=== PATIENT | male | born 1955 | race African-American/Black ===

== ENCOUNTER 2024-06-09 23:44 | Inpatient (IN) | payer BC, OTHER ==
[2024-06-10 01:02] LABS: BASO % 0.5 % (0-2.0); EOS % 2.4 % (0-4.5); HEMOGLOBIN 12.2 GM/dL (11.7-16.9); LYMPH % 28.3 % (8-40); MCH 26.3 pg (25.7-33.7); MEAN PLT VOLUME 8.9 fl (7.5-11.1); MONO % 13.5 % (3.8-10.2); NEUT % 55.3 % (42.8-82.8); PLATELET COUNT 245 10^3/uL (134-434); RBC 4.64 M/mm3 (4.00-5.60); RDW 12.8 % (11.9-15.9); VENOUS BASE EXCESS 2.9 mmol/L (-2-2); VENOUS O2 SATURATION 19.8 % (70-80); VENOUS PCO2 50.2 mmHg (38-52); VENOUS PH 7.378 (7.310-7.410); WHITE BLOOD COUNT 7.1 K/mm3 (4.0-10.0)
[2024-06-10] MEDS ORDERED: ACETAMINOPHEN INJECTION 100 ML ONE (01:16)
[2024-06-10] MEDS: SODIUM CHLORIDE 0.9% 500 ML INFUS.BAG IV ONE (01:20)
[2024-06-10 01:21] LABS: CHLORIDE 96 mmol/L (98-107); POTASSIUM 4.9 mmol/L (3.5-5.1); SODIUM 135 mmol/L (136-145)
[2024-06-10] MEDS: ACETAMINOPHEN 1000 MG/100 ML BAG IVPB ONE (01:21)
[2024-06-10 01:24] LABS: CALCIUM 9.7 mg/dL (8.5-10.1)
[2024-06-10 01:25] LABS: ALBUMIN 3.5 g/dl (3.4-5.0); ANION GAP 9 mmol/L (4-13); BLOOD UREA NITROGEN 33.3 mg/dL (7-18); CO2 29 mmol/L (21-32)
[2024-06-10 01:28] LABS: CREATININE 2.2 mg/dL (0.55-1.3); SGOT/AST 30 U/L (15-37); SGPT/ALT 20 U/L (13-61)
[2024-06-10 01:29] LABS: BILIRUBIN,TOTAL 1.1 mg/dL (0.2-1); TOT PROT 8.2 g/dl (6.4-8.2)
[2024-06-10 01:31] LABS: ALK PHOS 70 U/L (45-117)
[2024-06-10] MEDS ORDERED: INSULIN ASPART SLIDING SCALE (NOVOLOG) 1 VIAL SQ ONE (01:45)
[2024-06-10 01:46] LABS: GLUCOSE,RANDOM 415 mg/dL (74-106)
[2024-06-10] MEDS ORDERED: AMOXICILLIN 500 MG CAPSULE (FP) ONE (01:46)
[2024-06-10] MEDS: OFLOXACIN 0.3% OTIC SOLUTION 5 ML BOTTLE AD SCH (01:53)
[2024-06-10] MEDS: INSULIN (NOVOLOG) ASPART 100 UNITS/ML 10ML VIAL SQ ONE (01:53)
[2024-06-10] MEDS: AMOXICILLIN 500 MG CAPSULE (FP) PO ONE ×2 (01:53→02:06)
[2024-06-10 02:12] LABS: EPI CELLS 2 /uL (0-25.1); HYALINE CASTS 0 /uL (0-3.1); URINE APPEARANCE CLEAR; URINE BACTERIA 1 /uL (0-1359); URINE BILIRUBIN NEGATIVE (NEGATIVE); URINE COLOR YELLOW; URINE GLUCOSE (UA) 3+ (NEGATIVE); URINE KETONE NEGATIVE (NEGATIVE); URINE LEUK ESTERASE NEGATIVE (NEGATIVE); URINE NITRITE NEGATIVE (NEGATIVE); URINE PROTEIN 1+ (NEGATIVE); URINE RBC 11 /uL (0-23.9); URINE UROBILINOGEN 0.2 mg/dL (0.2-1.0); URINE WBC 2 /uL (0-25.8)
[2024-06-10] MEDS: INSULIN ASPART SLIDING SCALE (NOVOLOG) 1 VIAL SQ SCH (06:40)
[2024-06-10] MEDS: SODIUM CHLORIDE 1,000 ML IV SCH (06:42)
[2024-06-10] MEDS: HEPARIN NA (PORCINE) 5,000 UNITS/ML 1ML VIAL SQ SCH (06:43)
[2024-06-10] MEDS ORDERED: AMOX TR/POT CLAV 500MG/125MG TABLETS (FP) PO SCH (08:00)
[2024-06-10 08:15] LABS: BASO % 0.5 % (0-2.0); EOS % 2.8 % (0-4.5); HEMATOCRIT 36.2 % (35.4-49); HEMOGLOBIN 11.5 GM/dL (11.7-16.9); LYMPH % 36.5 % (8-40); MCH 26.5 pg (25.7-33.7); MCHC 31.8 g/dl (32.0-35.9); MEAN CELL VOLUME 83.2 fl (80-96); MEAN PLT VOLUME 9.1 fl (7.5-11.1); MONO % 14.6 % (3.8-10.2); NEUT % 45.6 % (42.8-82.8); PLATELET COUNT 217 10^3/uL (134-434); RBC 4.35 M/mm3 (4.00-5.60); RDW 12.4 % (11.9-15.9); WHITE BLOOD COUNT 6.9 K/mm3 (4.0-10.0)
[2024-06-10] MEDS: AMOX TR/POT CLAV 875MG/125MG TABLETS (FP) PO SCH (08:31)
[2024-06-10 08:37] LABS: POTASSIUM 3.8 mmol/L (3.5-5.1)
[2024-06-10 08:50] LABS: ALBUMIN 2.9 g/dl (3.4-5.0)
[2024-06-10 08:52] LABS: BLOOD UREA NITROGEN 29.9 mg/dL (7-18); MAGNESIUM 2.1 mg/dL (1.8-2.4)
[2024-06-10 08:54] LABS: CREATININE 1.7 mg/dL (0.55-1.3); PHOSPHOROUS 3.8 mg/dL (2.5-4.9)
[2024-06-10 08:56] LABS: BILIRUBIN,TOTAL 1.1 mg/dL (0.2-1); TOT PROT 6.9 g/dl (6.4-8.2)
[2024-06-10] MEDS: LOSARTAN 50MG/HCTZ 12.5MG 1 TAB PO SCH (09:40)
[2024-06-10] MEDS: ASPIRIN COATED 81 MG TABLET.EC PO SCH (09:40)
[2024-06-10] MEDS: INSULIN (LEVEMIR) 100 UNITS/ML UNITS SQ SCH (09:42)
[2024-06-10] MEDS ORDERED: ENOXAPARIN NA (PORCINE) 40 MG/0.4 ML DISP.SYRIN SQ SCH (10:00)
[2024-06-10] MEDS: TAMSULOSIN HCL 0.4 MG CAP PO ONE (11:56)
[2024-06-10 12:31] VITALS: BMI 27.3
[2024-06-10] MEDS: CARBAMIDE PEROXIDE 6.5% OTIC 15 ML BOTTLE AU SCH (12:37)
[2024-06-10] MEDS: SODIUM CHLORIDE 0.45% 1,000 ML IV SCH (12:45)
[2024-06-10 14:32] LABS: HIV INTERPRETATION NEGATIVE (NEGATIVE)
[2024-06-10] MEDS: PIPERACILLIN/TAZOB 2.25 GM 2.25 GM/50 ML BAG IVPB SCH (15:15)
[2024-06-10] MEDS ORDERED: PIPERACILLIN/TAZOB 2.25 GM 2.25 GM/50 ML BAG IVPB SCH (18:00)
[2024-06-10] MEDS: ROSUVASTATIN CA 10 MG TABLET PO SCH (21:58)
[2024-06-10] MEDS: PIPERACILLIN/TAZOB 4.5 GM 4.5 GM/100 ML BAG IVPB SCH (21:58)
[2024-06-11 07:28] LABS: BASO % 0.9 % (0-2.0); EOS % 2.3 % (0-4.5); HEMOGLOBIN 11.3 GM/dL (11.7-16.9); LYMPH % 33.6 % (8-40); MCH 26.2 pg (25.7-33.7); MCHC 31.5 g/dl (32.0-35.9); MEAN PLT VOLUME 8.9 fl (7.5-11.1); MONO % 11.9 % (3.8-10.2); NEUT % 51.3 % (42.8-82.8); PLATELET COUNT 237 10^3/uL (134-434); RBC 4.34 M/mm3 (4.00-5.60); RDW 12.6 % (11.9-15.9); WHITE BLOOD COUNT 7.3 K/mm3 (4.0-10.0)
[2024-06-11 07:46] LABS: POTASSIUM 4.4 mmol/L (3.5-5.1)
[2024-06-11 07:50] LABS: ALBUMIN 2.8 g/dl (3.4-5.0); BLOOD UREA NITROGEN 22.9 mg/dL (7-18); MAGNESIUM 1.9 mg/dL (1.8-2.4)
[2024-06-11 07:53] LABS: CREATININE 1.7 mg/dL (0.55-1.3)
[2024-06-11] MEDS: LOSARTAN POTASSIUM 50 MG TABLET PO SCH (09:35)
[2024-06-11] MEDS: TAMSULOSIN HCL 0.4 MG CAP PO SCH (09:35)
[2024-06-11] MEDS ORDERED: PIPERACILLIN/TAZOB 2.25 GM 2.25 GM/50 ML BAG IVPB SCH (18:00)
[2024-06-11] MEDS: INSULIN (LEVEMIR) 100 UNITS/ML UNITS SQ SCH (22:57)
[2024-06-12] MEDS: ACETAMINOPHEN 1000 MG/100 ML BAG IVPB ONE (00:35)
[2024-06-12 08:19] LABS: POTASSIUM 4.2 mmol/L (3.5-5.1)
[2024-06-12 08:21] LABS: CALCIUM 8.4 mg/dL (8.5-10.1)
[2024-06-12 08:22] LABS: ALBUMIN 2.6 g/dl (3.4-5.0); BLOOD UREA NITROGEN 24.4 mg/dL (7-18); MAGNESIUM 1.8 mg/dL (1.8-2.4)
[2024-06-12 08:25] LABS: CREATININE 1.7 mg/dL (0.55-1.3)
[2024-06-12 08:27] LABS: BILIRUBIN,TOTAL 0.7 mg/dL (0.2-1); TOT PROT 6.4 g/dl (6.4-8.2)
[2024-06-12 08:28] LABS: BASO % 0.6 % (0-2.0); EOS % 4.3 % (0-4.5); HEMATOCRIT 34.1 % (35.4-49); HEMOGLOBIN 11.2 GM/dL (11.7-16.9); MCH 26.8 pg (25.7-33.7); MEAN CELL VOLUME 81.3 fl (80-96); MONO % 10.4 % (3.8-10.2); NEUT % 49.7 % (42.8-82.8); PLATELET COUNT 248 10^3/uL (134-434); RBC 4.19 M/mm3 (4.00-5.60); RDW 12.6 % (11.9-15.9); WHITE BLOOD COUNT 6.5 K/mm3 (4.0-10.0)
[2024-06-12 08:29] LABS: HEMATOCRIT 34.6 % (35.4-49); HEMOGLOBIN 11.3 GM/dL (11.7-16.9); MCH 26.8 pg (25.7-33.7); MCHC 32.7 g/dl (32.0-35.9); MEAN CELL VOLUME 81.9 fl (80-96); PLATELET COUNT 246 10^3/uL (134-434); RBC 4.23 M/mm3 (4.00-5.60); RDW 12.7 % (11.9-15.9); WHITE BLOOD COUNT 6.6 K/mm3 (4.0-10.0)
[2024-06-12] MEDS: ACETAMINOPHEN 1000 MG/100 ML BAG IVPB PRN (10:00)
[2024-06-13 09:20] LABS: BASO % 0.5 % (0-2.0); EOS % 3.5 % (0-4.5); HEMATOCRIT 34.5 % (35.4-49); LYMPH % 35.7 % (8-40); MCHC 31.7 g/dl (32.0-35.9); MEAN CELL VOLUME 81.9 fl (80-96); MEAN PLT VOLUME 8.5 fl (7.5-11.1); MONO % 8.1 % (3.8-10.2); NEUT % 52.2 % (42.8-82.8); PLATELET COUNT 284 10^3/uL (134-434); RBC 4.22 M/mm3 (4.00-5.60); RDW 12.3 % (11.9-15.9); WHITE BLOOD COUNT 7.4 K/mm3 (4.0-10.0)
[2024-06-13 09:35] LABS: POTASSIUM 4.6 mmol/L (3.5-5.1)
[2024-06-13 09:39] LABS: CALCIUM 8.9 mg/dL (8.5-10.1)
[2024-06-13 09:40] LABS: ALBUMIN 2.7 g/dl (3.4-5.0); BLOOD UREA NITROGEN 21.6 mg/dL (7-18)
[2024-06-13 09:43] LABS: CREATININE 1.5 mg/dL (0.55-1.3)
[2024-06-13 09:44] LABS: BILIRUBIN,TOTAL 1.1 mg/dL (0.2-1); TOT PROT 6.6 g/dl (6.4-8.2)
[2024-06-14] MEDS: ACETAMINOPHEN 500 MG TABLET (FP) PO ONE (02:30)
[2024-06-14 08:36] LABS: BASO % 0.6 % (0-2.0); HEMATOCRIT 32.5 % (35.4-49); HEMOGLOBIN 10.4 GM/dL (11.7-16.9); LYMPH % 34.2 % (8-40); MCH 26.4 pg (25.7-33.7); MCHC 32.1 g/dl (32.0-35.9); MEAN CELL VOLUME 82.2 fl (80-96); MEAN PLT VOLUME 8.5 fl (7.5-11.1); MONO % 7.9 % (3.8-10.2); NEUT % 54.3 % (42.8-82.8); PLATELET COUNT 307 10^3/uL (134-434); RBC 3.95 M/mm3 (4.00-5.60); RDW 12.6 % (11.9-15.9); WHITE BLOOD COUNT 8.6 K/mm3 (4.0-10.0)
[2024-06-14 08:58] LABS: POTASSIUM 4.4 mmol/L (3.5-5.1)
[2024-06-14 09:02] LABS: ALBUMIN 2.7 g/dl (3.4-5.0); BLOOD UREA NITROGEN 17.4 mg/dL (7-18); CALCIUM 8.6 mg/dL (8.5-10.1)
[2024-06-14 09:05] LABS: CREATININE 1.6 mg/dL (0.55-1.3)
[2024-06-14 09:07] LABS: TOT PROT 6.6 g/dl (6.4-8.2)
[2024-06-15 07:50] LABS: BASO % 0.7 % (0-2.0); EOS % 3.1 % (0-4.5); HEMATOCRIT 35.6 % (35.4-49); HEMOGLOBIN 11.4 GM/dL (11.7-16.9); LYMPH % 34.9 % (8-40); MCH 26.3 pg (25.7-33.7); MCHC 32.1 g/dl (32.0-35.9); MEAN CELL VOLUME 82.2 fl (80-96); MEAN PLT VOLUME 8.1 fl (7.5-11.1); MONO % 9.7 % (3.8-10.2); NEUT % 51.6 % (42.8-82.8); PLATELET COUNT 353 10^3/uL (134-434); RBC 4.33 M/mm3 (4.00-5.60); RDW 12.8 % (11.9-15.9); WHITE BLOOD COUNT 8.7 K/mm3 (4.0-10.0)
[2024-06-15 08:09] LABS: POTASSIUM 4.4 mmol/L (3.5-5.1)
[2024-06-15 08:16] LABS: CALCIUM 8.9 mg/dL (8.5-10.1)
[2024-06-15 08:17] LABS: BLOOD UREA NITROGEN 14.9 mg/dL (7-18)
[2024-06-15 08:20] LABS: CREATININE 1.5 mg/dL (0.55-1.3)
[2024-06-16 12:14] VITALS: BP 149/84; PULSE 87; RESP 16; TEMP 98.2
== END 2024-06-16 13:13 | disposition home or self-care (01) | DRG 684 ==
LOC: JER 23:44 → JERBED 06-10 02:11 → J7W 06-10 04:49 → OBSVTOIN 06-10 14:58
PROVIDERS: ADMIT Internal Medicine; ATTEND Nurse Practitioner Family
DX: N17.9 Acute kidney failure, unspecified (principal); E11.65 Type 2 diabetes mellitus with hyperglycemia; H60.509 Unspecified acute noninfective otitis externa, unspecified ear; E78.5 Hyperlipidemia, unspecified; I10 Essential (primary) hypertension; H70.91 Unspecified mastoiditis, right ear; E86.0 Dehydration
CPT/HCPCS: 36415; 70480-TC; 70486-TC; 76775-TC; 80048; 80053; 81003; 82010; 82550; 82553; 82570; 82803; 82962; 83036; 83735; 84100; 84156; 85025; 85027; 86140; 86803; 87070; 87077; 87086; 87205; 87389; 93005; 93010; 99285-25; G0378; J0131; J1644